=== PATIENT | male | born 1960 | race Caucasian/White ===

== ENCOUNTER 2017-01-15 15:21 | Emergency (ER) | payer MEDICARE, BC ==
[~2017-01-15] VITALS: Ht 175.3 cm; Wt 82.0 kg
[2017-01-15] MEDS ORDERED: BUPIVACAINE 0.25% ONE (15:59)
[2017-01-15] MEDS ORDERED: LIDOCAINE 1%, 20ML ONE (15:59)
[2017-01-15] MEDS ORDERED: LIDOCAINE 1%, 20ML SQ ONE (16:00)
[2017-01-15] MEDS ORDERED: BUPIVACAINE 0.25% INFIL ONE (16:00)
[2017-01-15] MEDS ORDERED: DIPH,PERTUSS(ACELL),TET VAC/PF 0.5 ML IM-VACC ONE ×2 (16:00→16:02)
[2017-01-15 17:42] VITALS: BP 130/85
== END 2017-01-15 17:44 | disposition home or self-care (01) ==
LOC: ED 17:38
DX: S61.012A Laceration without foreign body of left thumb without damage to nail, initial encounter (principal); S09.90XA Unspecified injury of head, initial encounter; W06.XXXA Fall from bed, initial encounter; Y93.89 Activity, other specified; Y92.89 Other specified places as the place of occurrence of the external cause; Y99.8 Other external cause status
CPT/HCPCS: 12002; 70450; 90471; 90715; 93005